=== PATIENT | female | born 1970 | race Caucasian/White ===

== ENCOUNTER 2017-07-25 02:43 | Emergency (ER) | payer BC ==
[~2017-07-25] VITALS: Ht 154.9 cm; Wt 62.6 kg
[2017-07-25] MEDS ORDERED: BUPR150T5 PO (02:56)
[2017-07-25] MEDS ORDERED: ONDANSETRON ODT 4 MG TAB.RAPDIS SL ONE (03:30)
[2017-07-25] MEDS ORDERED: AMOXICILLIN-CLAVUL 875-125MG TABLET PO ONE (03:30)
[2017-07-25] MEDS ORDERED: OXYCODONE/APAP 5-325 MG TABLET PO ONE (03:30)
[2017-07-25] MEDS ORDERED: ONDANSETRON ODT 4 MG TAB.RAPDIS ONE (03:31)
[2017-07-25] MEDS ORDERED: IV NORMAL SALINE 1000 ML BAG IV ONE (04:00)
[2017-07-25] MEDS ORDERED: OXYCODONE/APAP 5-325 MG TABLET ONE (04:14)
[2017-07-25] MEDS ORDERED: AMOXICILLIN-CLAVUL 875-125MG TABLET ONE (04:14)
--- NOTE | 2017-07-25 04:18 | NUR ---
PT IN BED. PT'S VISITOR AT BEDSIDE. PT IS A&OX4. PT IS CALM AND COOPERATIVE. PT IS CURRENTLY RECEIVING IV FLUIDS. VSS AND WNL. NO SIGNS/SYMPTOMS OF DISTRESS WITNESSED BY NURSE OR EXPRESSED BY PT, AT THIS TIME.
--- NOTE | 2017-07-25 04:29 | NUR ---
PO CHALLENGE SUCCESSFULLY PASSED. PT ABLE TO AMBULATE TO RESTROOM. PT DENIES DIZZINESS, AT THIS TIME.
--- NOTE | 2017-07-25 04:45 | NUR ---
Patient discharged to home in stable conditon. Written and verbal after care instructions given. Patient verbalizes understanding of instructions. Patient able to ambulate unassisted with a steady gait. Patient left with all personal belongings.
[2017-07-25 05:02] VITALS: BP 129/81
== END 2017-07-25 04:45 | disposition home or self-care (01) ==
LOC: ER 02:43
DX: S61.452A Open bite of left hand, initial encounter (principal); S50.01XA Contusion of right elbow, initial encounter; F42.9 Obsessive-compulsive disorder, unspecified; F41.9 Anxiety disorder, unspecified; W54.0XXA Bitten by dog, initial encounter; Y92.89 Other specified places as the place of occurrence of the external cause; Y93.89 Activity, other specified; Y99.8 Other external cause status
CPT/HCPCS: 72170; 73080; A4217; A4663; J7030; Q0162

== ENCOUNTER 2017-07-27 14:42 | Emergency (ER) | payer BC ==
[~2017-07-27] VITALS: Ht 154.9 cm; Wt 62.6 kg
[~2017-07-27 14:42] MED LIST: BUPR150T5 PO
[2017-07-27] MEDS ORDERED: MECLIZINE HCL 25 MG TABLET PO ONE (15:54)
[2017-07-27 16:05] LABS: BASOPHILS # (AUTO) 0.1 K/uL (0.0-8.0); BASOPHILS % (AUTO) 0.7 % (0.0-2.0); EOSINOPHILS # (AUTO) 0.1 K/uL (0.0-0.7); HEMATOCRIT 40.9 % (31.2-41.9); HEMOGLOBIN 13.9 g/dL (10.9-14.3); LYMPHOCYTES # (AUTO) 1.6 K/uL (20.0-40.0); LYMPHOCYTES % (AUTO) 20.7 % (20.5-51.5); MEAN CORPUSCULAR HGB CONC 34 g/dL (32.3-35.6); MEAN CORPUSCULAR VOLUME 91.2 fL (75.5-95.3); MONOCYTES # (AUTO) 0.4 K/uL (2.0-10.0); MONOCYTES % (AUTO) 5.5 % (0.0-11.0); NEUTROPHILS # (AUTO) 5.4 K/uL (1.8-8.9); NEUTROPHILS % (AUTO) 72.1 % (38.5-71.5); PLATELET COUNT (AUTO) 270 K/uL (179-408); RED BLOOD CELL COUNT(AUTO) 4.49 MIL/uL (3.63-4.92); WHITE BLOOD COUNT (AUTO) 7.5 K/uL (3.8-11.8)
[2017-07-27 16:17] LABS: CREATININE 0.8 mg/dL (0.6-1.3); POTASSIUM 4.4 mmol/L (3.5-5.1)
[2017-07-27 16:23] LABS: BILIRUBIN,TOTAL 0.7 mg/dL (0.2-1.0); TOTAL PROTEIN, SERUM 8.2 g/dL (6.4-8.2)
[2017-07-27] MEDS ORDERED: MECLIZINE HCL 25 MG TABLET ONE (16:25)
[2017-07-27 17:08] LABS: *BILIRUBIN,URIN NEGATIVE (NEGATIVE); *BLOOD, URINE 1+ (NEGATIVE); *CLARITY,URINE CLEAR (CLEAR); *COLOR,URINE LIGHT YELLOW (YELLOW); *KETONES,URINE NEGATIVE (NEGATIVE); *PROTEIN,URINE NEGATIVE (NEGATIVE); *URINE HCG, QUAL NEGATIVE (NEGATIVE); *UROBILINOGEN,URINE 0.2 E.U./dl (NORMAL); LEUKOCYTE ESTERASE ,URINE NEGATIVE (NEGATIVE); NITRITE, URINE NEGATIVE (NEGATIVE); PH,URINE 7.5 (5.0-8.0); UGLUCOSE NEGATIVE (NEGATIVE)
[2017-07-27 17:18] LABS: SQUAMOUS EPITHELIAL CELL,UR MODERATE /HPF (NONE SEEN); WBC,URINE 0-3 /HPF (0-3)
--- NOTE | 2017-07-27 17:19 | NUR ---
HOSPITAL SANDWICH AND JUICE PROVIDED PER PT REQUEST.
[2017-07-27 17:58] VITALS: BP 128/89
--- NOTE | 2017-07-27 17:58 | NUR ---
Patient discharged to home in stable conditon. Written and verbal after care instructions given. Patient verbalizes understanding of instructions.PT WALKS IN STEADY GAIT. PT SAAD LEON DIZZINESS AT THIS POINT, SAYS FEELS BETTER.
== END 2017-07-27 18:07 | disposition home or self-care (01) ==
LOC: ER 14:45
DX: S00.03XA Contusion of scalp, initial encounter (principal); F07.81 Postconcussional syndrome; F41.9 Anxiety disorder, unspecified; F42.9 Obsessive-compulsive disorder, unspecified; R42 Dizziness and giddiness; W54.0XXA Bitten by dog, initial encounter; Y93.89 Activity, other specified; Y92.89 Other specified places as the place of occurrence of the external cause; Y99.8 Other external cause status
CPT/HCPCS: 36415; 70450; 71045; 80053; 81001; 82550; 84484; 84703; 85025; 93005; 99285; A4663; J8597; 70030-TC